=== PATIENT | female | born 1995 | race Caucasian/White ===

== ENCOUNTER 2017-05-23 10:56 | Inpatient (IN) ==
[~2017-05-23 10:56] MED LIST: Famotidine 20 MG/2 ML VIAL IVP PRN; Naloxone 0.4 MG/ML INJ IVP PRN; Ringers Solution, Lactated 1,000 ML ONE
--- NOTE | 2017-05-23 11:04 | Anesthesia Evaluation PreOp ---
Date of Encounter: 05/23/17 Time of Encounter: 11:02 - Past History Planned Operation: Cardiac History: Denies any Significant Hx Pulmonary History: Denies Any Significant HX ANTHROPOLOGY LECTURER History: Denies Any Significant HX Other Medical History: GERD Anesthesia History: Past Anesthesia (no prior surgery) : Yes (IUP 38+3 weeks, ) Alcohol Use: none Drug use: none - Meds/Allergy Pre-op Review Medications Reviewed: Yes Allergies Reviewed: Yes Beta Blockers on Current Med List: No Anesthesia Results - Labs Laboratory Tests 03/07/17 09:10 WBC 10.7 Hgb 12.9 Hct 37.7 Plt Count 204 Anesthesia Exam 3 Vital Signs BP 113/70 Pulse 81 Resp 18 Height: 5' Weight: 165 lbs NPO (# of Hours): 8 Pain Scale: 1 (abdomen) Pain Scale Used: Numeric (1 - 10) - HEENT Pupil (Motor): EOMI Mallampati: II Teeth: Normal Oral Opening: Greater than 3 - ANTHROPOLOGY LECTURER LOC: Oriented ANTHROPOLOGY LECTURER Motor: Normal RUE, Normal LUE, Normal RLE, Normal LLE, Normal Face ANTHROPOLOGY LECTURER Sensory: Normal: RUE, LUE, RLE, LLE, Face - Cardiac Rhythm: Regular Murmur: None - Pulmonary Breath Sounds: bilateral Clear Respiratory Effort: Symmetrical Anesthesia Assess/Plan ASA Score: 2, E Modified [place] Scale for Level of Consciousness: Cooperative, oriented, and tranquil Anesthetic Plan: General Monitoring Plan: Standard Monitors Recovery Plan: PACU
[2017-05-23] MEDS ORDERED: CeFAZolin Pre 2,000 MG/100 ML 2,000 MG/100 ML BAG IVPB ONE (11:05)
[2017-05-23] MEDS ORDERED: Oxytocin 20 units/ LR 1000 mL 20 UNIT/1,000 ML BAG IVC ONE ×2 (11:05→15:00)
[2017-05-23] MEDS ORDERED: Ringers Solution, Lactated 1,000 ML IVC SCH ×2 (11:15→12:45)
[2017-05-23 11:17] LABS: Basophils % 0.1 %; Eosinophils # 0.1 K/mcL (0.0-0.6); Eosinophils % 0.7 %; Hemoglobin 12.5 g/dL (11.5-15.4); Immature Platelets 9.2 % (1.1-6.1); Lymphocytes # 1.5 K/mcL (0.6-4.6); Lymphocytes % 10.5 %; Mean Corpuscular HGB Conc 33.8 g/dL (31.6-35.5); Mean Corpuscular Hemoglobin 27.1 pg (28.0-33.3); Mean Corpuscular Volume 80.3 fL (83.0-100.0); Mean Platelet Volume 11.6 fL (9.4-12.4); Monocytes # 0.7 K/mcL (0.0-1.3); Monocytes % 5.1 %; Neutrophils # 11.9 K/mcL (1.6-8.9); Nucleated Red Blood Cells 0.1 /100 WBC (0); Platelet Count 172 K/mcL (140-400); Red Blood Count 4.61 M/mcL (3.82-4.97); Red Cell Distribution Width 14.2 % (11.5-14.5); Segmented Neutrophils % 82.6 %
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
[2017-05-23] MEDS ORDERED: Naloxone 0.4 MG/ML INJ IVP PRN (12:32)
[2017-05-23 12:36] LABS: INR 1.1; Prothrombin Time 11.8 Seconds (9.4-12.1)
[2017-05-23 12:38] LABS: Activated Partial Thrombo Time 24.8 Seconds (26.0-36.0)
[2017-05-23] MEDS ORDERED: *HR* FentaNYL (PF) 100 MCG/2 ML VIAL ONE (12:40)
[2017-05-23] MEDS ORDERED: *HR* Succinylcholine 200 MG/10 ML VIAL IVP ONE (12:40)
[2017-05-23] MEDS ORDERED: *HR* Propofol 200 MG/20 ML VIAL IVP ONE (12:40)
[2017-05-23] MEDS ORDERED: *HR* HYDROmorphone (PF) 1 MG/ML SYRINGE ONE (12:40)
[2017-05-23] MEDS ORDERED: *HR* Oxytocin 10 UNIT/ML VIAL IM ONE (12:40)
[2017-05-23] MEDS ORDERED: Dexamethasone 4 MG/ML VIAL ONE (12:40)
[2017-05-23] MEDS ORDERED: Ondansetron 4 MG/2 ML VIAL ONE (12:40)
[2017-05-23] MEDS ORDERED: Albuterol 2.5 MG/3 ML NEBULIZER IH ONE (12:42)
[2017-05-23] MEDS ORDERED: *HR* Labetalol 20 MG/4 ML SYRINGE IVP PRN (12:42)
[2017-05-23] MEDS ORDERED: Ondansetron 4 MG/2 ML VIAL IVP ONE (12:42)
[2017-05-23] MEDS ORDERED: *HR* HYDROmorphone (PF) 1 MG/ML SYRINGE IVP PRN (12:42)
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
[2017-05-23] MEDS ORDERED: Acetaminophen IV 1,000 MG/100 ML INFUS..BTL IVPB ONE (12:46)
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
== END 2017-05-23 15:00 | disposition other institution (70) | DRG 222 ==
LOC: 1NENULAB
PROVIDERS: ADMIT Advanced Practice Midwife; ATTEND Obstetrics & Gynecology